=== PATIENT | female | born 1970 | race Caucasian/White ===

== ENCOUNTER 2021-06-27 17:46 | Emergency (ER) | payer OTHER ==
[2021-06-27 18:22] LABS: EOSINOPHIL 3.4 % (0-5); HCT 40.5 % (37.0-47.0); HGB 14.2 g/dl (12.5-16.0); LYMPHOCYTE 32.1 % (15-48); MCHC 35.1 g/dL (32.0-36.0); MCV 88.4 fL (78.0-100.0); MONOCYTE 5.2 % (0-12); MPV 11.8 fL (6.0-9.5); NEUTROPHIL 57.7 % (41-80); NRBC 0; PLT 249 K/uL (150-400); RBC 4.58 M/uL (4.20-5.40); RDW 13.5 % (11.5-14.0); WBC 10.2 K/uL (4.0-10.5)
[2021-06-27 18:26] LABS: INR 0.98 (0.9-1.2); PROTHROMBIN TIME 12.4 SECONDS (11.8-13.4); PTT 23.4 SECONDS (24.4-34.7)
[2021-06-27 18:56] LABS: ALBUMIN 4.4 g/dL (3.4-5.0); BILIRUBIN - TOTAL 0.9 mg/dL (0.2-1.0); BUN/CREAT RATIO (CALC) 25.4 RATIO; CREATININE 0.63 mg/dL (0.51-0.95); GLOBULIN (CALCULATION) 3.4 g/dL; POTASSIUM 3.4 mmol/L (3.5-5.1); TOTAL PROTEIN 7.8 g/dL (6.4-8.2)
[2021-06-27 19:57] LABS: MAGNESIUM 1.6 mg/dL (1.8-2.4)
[2021-06-27 22:02] LABS: AMPHETAMINES NEGATIVE (NEGATIVE); BARBITURATES NEGATIVE (NEGATIVE); ECSTASY (MDMA) NEGATIVE (NEGATIVE); MARIJUANA (THC) POSITIVE (NEGATIVE); METHADONE NEGATIVE (NEGATIVE); OPIATES NEGATIVE (NEGATIVE); OXYCODONE NEGATIVE (NEGATIVE)
== END 2021-06-28 09:53 | disposition home or self-care (01) ==
LOC: FER 17:46
PROVIDERS: Emergency Medicine
DX: R55 Syncope and collapse (principal); E11.9 Type 2 diabetes mellitus without complications; F17.200 Nicotine dependence, unspecified, uncomplicated; Z04.1 Encounter for examination and observation following transport accident
CPT/HCPCS: 36415; 70450; 71045; 72125; 80053; 80305; 83735; 84484; 85025; 85610; 85730; 93005; J3475; J3480; J7050